=== PATIENT | female | born 2000 | race Caucasian/White ===

== ENCOUNTER 2021-04-05 22:30 | Emergency (ER) | payer BC ==
[2021-04-05 22:38] VITALS: BMI 26.5
[2021-04-05] MEDS ORDERED: KETOROLAC TROMETHAMINE 30 MG/1 ML VIAL IVPUSH ONE (23:04)
[2021-04-05] MEDS ORDERED: LACTATED RINGERS SOLUTION 1000 ML INFUS.BAG IV ONE (23:04)
[2021-04-06 02:24] LABS: PH,URINE 7.5 (5.0-8.0); URINE APPEARANCE TURBID; URINE BILIRUBIN NEGATIVE (NEGATIVE); URINE COLOR YELLOW; URINE GLUCOSE (UA) NEGATIVE (NEGATIVE); URINE KETONE NEGATIVE (NEGATIVE); URINE LEUK ESTERASE NEGATIVE (NEGATIVE); URINE NITRITE NEGATIVE (NEGATIVE); URINE PROTEIN NEGATIVE (NEGATIVE); URINE UROBILINOGEN 0.2 mg/dL (0.2-1.0)
[2021-04-06 02:28] LABS: BASO % 0.2 % (0-2.0); EOS % 1.1 % (0-4.5); HEMATOCRIT 38.1 % (32.4-45.2); HEMOGLOBIN 12.9 GM/dL (10.7-15.3); LYMPH % 28.5 % (8-40); MCH 28.9 pg (25.7-33.7); MCHC 33.9 g/dl (32.0-36.0); MEAN CELL VOLUME 85.2 fl (80-96); MEAN PLT VOLUME 9.3 fl (7.5-11.1); NEUT % 62.2 % (42.8-82.8); PLATELET COUNT 192 K/MM3 (134-434); RBC 4.47 M/mm3 (3.60-5.2); RDW 13.1 % (11.6-15.6); WHITE BLOOD COUNT 7.5 K/mm3 (4.0-10.0)
[2021-04-06 02:35] LABS: HCG,QUALITATIVE URINE Negative
[2021-04-06 02:45] LABS: CALCIUM 8.5 mg/dL (8.5-10.1)
[2021-04-06 02:46] LABS: ALBUMIN 3.6 g/dl (3.4-5.0); BLOOD UREA NITROGEN 10.3 mg/dL (7-18)
[2021-04-06 02:49] LABS: CREATININE 0.7 mg/dL (0.55-1.3)
[2021-04-06 02:50] LABS: BILIRUBIN,TOTAL 0.2 mg/dL (0.2-1)
[2021-04-06 02:51] LABS: TOT PROT 7.3 g/dl (6.4-8.2)
[2021-04-06 05:30] VITALS: BP 120/83; PULSE 60; TEMP 97.8
== END 2021-04-06 05:56 | disposition home or self-care (01) ==
LOC: JER 22:30
PROC: 3E0333Z Introduction of Anti-inflammatory into Peripheral Vein, Percutaneous Approach (ICD-10-PCS; principal; 2021-04-05)
DX: R10.32 Left lower quadrant pain (principal)
CPT/HCPCS: 36415; 74177-TC; 76830-TC; 80053; 81003; 84703; 85025; 87086; 99285-25; Q9967